=== PATIENT | male | born 1965 | race Caucasian/White ===

== ENCOUNTER 2016-12-08 17:38 | Emergency (ER) | payer BC ==
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
== END 2016-12-08 18:54 | disposition home or self-care (01) ==
LOC: ER 17:38
DX: H60.502 Unspecified acute noninfective otitis externa, left ear (principal); H66.92 Otitis media, unspecified, left ear; Z88.0 Allergy status to penicillin
CPT/HCPCS: J7030; Z7502

== ENCOUNTER 2016-12-11 07:25 | Emergency (ER) | payer BC ==
[2016-12-11] MEDS ORDERED: Sulfamethoxazole/TMP 800/160mg Tab PO ONE (08:02)
[2016-12-11] MEDS ORDERED: Sulfamethoxazole/TMP 800/160mg Tab ONE (08:05)
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
== END 2016-12-11 08:30 | disposition home or self-care (01) ==
LOC: ER 07:25
DX: L02.01 Cutaneous abscess of face (principal); Z88.0 Allergy status to penicillin
CPT/HCPCS: 99283; 96372; J0696; Z7502

== ENCOUNTER 2017-01-06 19:59 | Emergency (ER) | payer BC ==
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
== END 2017-01-06 20:30 | disposition home or self-care (01) ==
LOC: ER 19:59
DX: H10.33 Unspecified acute conjunctivitis, bilateral (principal); E11.9 Type 2 diabetes mellitus without complications; Z88.0 Allergy status to penicillin
CPT/HCPCS: Z7502

== ENCOUNTER 2017-01-18 17:58 | Emergency (ER) | payer BC ==
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
[2017-01-18 19:51] LABS: URINE BILIRUBIN NEGATIVE (NEGATIVE); URINE BLOOD NEGATIVE (NEGATIVE); URINE COLOR YELLOW; URINE GLUCOSE (UA) NEGATIVE (NEGATIVE); URINE KETONE NEGATIVE (NEGATIVE); URINE PROTEIN NEGATIVE (NEGATIVE); URINE UROBILINOGEN 0.2 E.U./dL (0.2 - 1.0)
[2017-01-18 19:52] LABS: URINE BACTERIA OCCASIONAL /hpf (NONE SEEN); URINE EPITHELIAL CELLS OCCASIONAL /lpf (FEW); URINE RBC NONE SEEN /hpf (0-5); URINE WBC 0-2 /hpf (0-5)
== END 2017-01-18 20:14 | disposition home or self-care (01) ==
LOC: ER 17:58
DX: H60.92 Unspecified otitis externa, left ear (principal); J44.9 Chronic obstructive pulmonary disease, unspecified; J45.909 Unspecified asthma, uncomplicated; Z88.0 Allergy status to penicillin
CPT/HCPCS: 81001-TC; Z7502

== ENCOUNTER 2017-01-30 22:27 | Emergency (ER) | payer BC ==
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
[2017-01-30] MEDS ORDERED: Bacitracin pkt 1 gm Pkt TP STA (23:10)
[2017-01-30] MEDS ORDERED: Bacitracin pkt 1 gm Pkt TP ONE (23:19)
== END 2017-01-30 23:30 | disposition home or self-care (01) ==
LOC: ER 22:27
DX: S61.212A Laceration without foreign body of right middle finger without damage to nail, initial encounter (principal); W26.0XXA Contact with knife, initial encounter; Y93.89 Activity, other specified; Y92.89 Other specified places as the place of occurrence of the external cause; Y99.8 Other external cause status
CPT/HCPCS: 99283; 12001; 90715; Z7610; Z7502

== ENCOUNTER 2018-09-28 19:57 | Emergency (ER) | payer BC ==
--- NOTE | 2018-09-28 21:04 | ED Physician Chart ---
ED Chief Complaint/HPI - Patient Information Date Seen:: 09/28/18 Time Seen:: 20:09 Chief Complaint:: right foot pain History of Present Illness:: this is a 53 yo male who states that he injured his right foot after kicking a large object. he is now concerned that he might have broken his foot. Allergies:: Allergies Allergy/AdvReac Type Severity Reaction Status Date / Time Penicillins [PCN] AdvReac Verified 01/18/17 18:41 Vitals:: Vital Signs - 8 hr 09/28/18 20:00 Temp 98.2 F HR 83 RR 18 BP 139/75 O2 Sat % 96 Historian:: Patient Review:: Nurse's Note Reviewed ED Review of Systems - Review of Systems Musculoskeletal: Bone or joint pain (right foot pain) ED Past Medical History - Past Medical History Obtainable: Yes Past Medical History: DM Family History: None Social History: Non Smoker, No Alcohol, No Drug Use, Employed Surgical History: None Psychiatricy History: None Medication: Reviewed Family Medical History - Family Member Mother History Unknown: Yes Ethnicity: Hx Family Diabetes: Yes ED Physical Exam - Physical Examination General/Constitutional: Awake, Well-developed, well-nourished, Alert, No distress, GCS 15, Non-toxic appearing, Ambulatory Head: Atraumatic Eyes: Lids, conjuctiva normal, PERRL, EOMI Skin: Nl inspection, No rash, No skin lesions, No ecchymosis, Well hydrated, No lymphadenopathy ENMT: External ears, nose nl, Nasal exam nl, Lips, teeth, gums nl Neck: Nontender, Full ROM w/o pain, No JVD, No nuchal rigidity, No bruit, No mass, No stridor Respiratory: Nl effort/Exclusion, Clear to Auscultation, No Wheeze/Rhonchi/Rales Cardio Vascular: RRR, No murmur, gallop, rubs, NL S1 S2 GI: No tenderness/rebounding/guarding, No organomegaly, No hernia, Normal BS's, Nondistended, No mass/bruits, No McBurney tenderness : No CVA tenderness Extremities: No tenderness or effusion, Full ROM, normal strength in all extremities, No edema, Normal digits & nails Other Extremities comments:: right foot tenderness without swelling on the dorsal-medial aspect of the right foot. there are no open wound noted. Neuro/Psych: Alert/oriented, DTR's symmetric, Normal sensory exam, Normal motor strength, Judgement/insight normal, Mood normal, Normal gait, No focal deficits Misc: Normal back, No paraspinal tenderness ED Labs/Radiology/EKG Results - Radiology Results Results: right foot x-ray= loose body noted but no fracture. ED Assessment - Assessment General Assessment: contusion of the right foot ED Septic Shock - . Is Septic Shock (SBP<90, OR Lactate>4 mmol\L) present?: No - <6hrs of presentation: Vital Signs: Vital Signs - 8 hr 09/28/18 20:00 Temp 98.2 F HR 83 RR 18 BP 139/75 O2 Sat % 96 ED Reassessment (Disposition) - Reassessment Reassessment Condition:: Unchanged - Diagnosis Diagnosis:: right foot contusion loose body right foot - Aftercare/Follow up Instructions Aftercare/Follow-Up Instructions:: Counseled pt regarding lab results/diagnosis & need follow up, Refer to Discharge Instructions, Counseled pt & family regarding lab results/diagnosis & need follow up Notes:: the patient was refered to an orthopedic surgeon - Patient Disposition Discharge/Transfer:: Home
--- NOTE | 2018-09-29 10:04 | Diagnostic Imaging Report ---
Right foot (3 views) HISTORY: Pain, trauma There is a calcific density noted over the dorsal aspect of the talus. This may be chronic. However, an avulsion fracture cannot be excluded. Clinical correlation is needed. Small spur formation noted off the dorsal and plantar aspects of the posterior calcaneus. Mild degenerative changes noted about the tibiotalar joint region. Vascular calcination is seen. IMPRESSION: 1. Calcific density adjacent to the upper margin of the talus. This may be chronic. However, an avulsion fracture cannot be excluded. Clinical correlation is needed 2. Calcaneal spur formation 3. Additional chronic and degenerative changes 4. Vascular calcification (does the patient have a history of diabetes?). In the presence of recent trauma and persistent symptoms, a repeat radiograph in 5-7 days may be helpful for detection of a subtle or occult fracture.
== END 2018-09-28 20:45 | disposition home or self-care (01) ==
LOC: ER 19:57
DX: S90.31XA Contusion of right foot, initial encounter (principal); M67.873 Other specified disorders of tendon, right ankle and foot; E11.9 Type 2 diabetes mellitus without complications; Z88.0 Allergy status to penicillin; W22.8XXA Striking against or struck by other objects, initial encounter; Y93.89 Activity, other specified; Y92.89 Other specified places as the place of occurrence of the external cause; Y99.8 Other external cause status
CPT/HCPCS: 73630-TC-RT; Z7502